=== PATIENT | male | born 1955 | race Caucasian/White ===

== ENCOUNTER 2018-09-28 23:00 | Emergency (ER) | payer OTHER ==
--- NOTE | 2018-09-28 23:09 | EDPHY ---
H & P Stated Complaint: abd pain for one week LUQ Time Seen by Provider: 09/28/18 23:09 HPI/ROS: HPI CHIEF COMPLAINT: Left upper quadrant abdominal pain. HISTORY OF PRESENT ILLNESS: 63-year-old male, otherwise healthy, presents emergency room with 3 weeks of abdominal pain. He states he has had rather constantly for the last 3 weeks. Worse over the last 2 weeks. Dislocated his left upper quadrant. Describes an achy sensation. No chest pain or shortness of breath. He denies any vomiting, he does endorse postprandial fullness. Additionally endorses bloating. Patient reports that he thought he was may be constipated took a lot of constipation medications and relieve this problem however continues to have pain and bloating. States worse after he eats. Pain is located left upper quadrant currently 05/08. He has seen his primary care doctor for this who ordered an outpatient CT but is unsure when this post be done. Additionally he had upright chest x-ray. States that was normal. He endorses night times chills, sweats, fever T-max 101 degrees. He denies any chest pain, shortness of breath, pleuritic pain, productive cough , does endorse urinary discoloration of dark urine. Past Medical History: Degenerative disc disease Past Surgical History: Ruptured appendix, right parotidectomy Social History: Denies drugs alcohol tobacco. Employed here at [employer]. Family History: Noncontributory. ROS REVIEW OF SYSTEMS: 10 Systems were reviewed and negative with the exception of the elements mentioned in the history of present illness. Exam Constitutional triage nursing summary reviewed, vital signs reviewed, awake/ alert. Eyes normal conjunctivae and sclera, EOMI, PERRLA. HENT normal inspection, atraumatic, moist mucus membranes, no epistaxis, neck supple/ no meningismus, no raccoon eyes. Respiratory clear to auscultation bilaterally, normal breath sounds, no respiratory distress, no wheezing. Cardiovascular rate normal, regular rhythm, no murmur, no edema, distal pulses normal. Gastrointestinal soft I cannot elicit any tenderness in left upper quadrant, no rebound, no guarding, normal bowel sounds, no distension, no pulsatile mass. Genitourinary no CVA tenderness. Musculoskeletal no midline vertebral tenderness, full range of motion, no calf swelling, no tenderness of extremities, no meningismus, good pulses, neurovascularly intact. Skin pink, warm, & dry, no rash, skin atraumatic. Neurologic awake, alert and oriented x 3, AAOx3, moves all 4 extremities equally, motor intact, sensory intact, CN II-XII intact, normal cerebellar, normal vision, normal speech. Psychiatric normal mood/affect. Heme/Lymph/Immune no lymphadenopathy. Differential Diagnosis: Differential diagnosis includes but is not limited to and in no particular order: Bowel obstruction, appendicitis, gallbladder disease, diverticulitis, colitis, enteritis, perforated viscus, gastritis, GERD , esophagitis, urinary tract infection, pyelonephritis, kidney stones Medical Decision Making: Plan for this patient IV establishment IV fluid bolus basic lab work, CT scan abdomen pelvis with IV contrast to help delineate left upper quadrant abdominal pain, check EKG, troponin, LFTs, lipase, electrolytes and re-evaluate. Re-evaluation: CT scan abdomen pelvis with IV contrast negative for acute inflammatory process. There is nothing specifically explain left upper quadrant abdominal pain. Upon further review of his blood work he does have a positive D-dimer. Plan will be for CT angiogram of the chest this may be the cause of his left upper quadrant abdominal pain. EKG interpretation by me on record in [employer] system. Impression time of EKG 2333, sinus rhythm rate of 74, incomplete right bundle-branch block present. But no signs of acute ischemia. Patient CT angiogram of the chest with IV contrast rule out left lower lobe PE or left lung PE is negative. No evidence of PE. Nothing to explain left upper quadrant left lower lung pain. Patient had a 2nd troponin that is 0.00. The patient is a repeat EKG time 2:55 a.m., this is sinus rhythm rate of 74 nonspecific intraventricular conduction delay without any signs of acute ischemia I do not appreciate any ST elevation or ST depression. Compare this to his old EKG is very similar in appearance with incomplete bundle branch block appearance. The patient has no chest pain or shortness of breath his main complaint is left upper quadrant abdominal pain. The patient's blood work is reviewed and unremarkable to help explain this pain. The patient had a CT angiogram of the chest rule out PE given the positive D- dimer this is negative. The patient had a CT scan abdomen pelvis with IV contrast to help delineate the left upper quadrant abdominal pain this is negative for acute inflammatory process I did give the patient a GI cocktail which did not help with his left upper quadrant abdominal pain. He did improve with IV narcotic pain medicine. Patient re-evaluated resting comfortably. I do recommend he follows up with GI. Given postprandial fullness, bloating, food intolerance recommend EGD. Possible gastritis versus peptic ulcer disease. Zantac prescribed. Return if worse. Source: Patient - Personal History Current Tetanus/Diphtheria Vaccine: Yes Current Tetanus Diphtheria and Acellular Pertussis (TDAP): Yes - Medical/Surgical History Hx Asthma: No Hx Chronic Respiratory Disease: No Hx Diabetes: No Hx Cardiac Disease: No Hx Renal Disease: No Hx Cirrhosis: No Hx Alcoholism: No Hx HIV/AIDS: No Hx Splenectomy or Spleen Trauma: No Other PMH: appy, gland removed - Social History Smoking Status: Never smoked Constitutional: Initial Vital Signs Temperature (C) 36.6 C 09/28/18 23:03 Heart Rate 73 09/28/18 23:03 Respiratory Rate 16 09/28/18 23:03 Blood Pressure 140/88 H 09/28/18 23:03 O2 Sat (%) 98 09/28/18 23:03 O2 Delivery Mode Room Air Allergies/Adverse Reactions: No Known Allergies Allergy (Unverified 09/28/18 23:06) Home Medications: Medication Instructions Recorded Hydrocodone/APAP 5/325 [[place] 1 - 2 tab PO Q4H PRN #10 tab 09/29/18 5/325 (*)] Ranitidine HCl [Zantac] 150 mg PO DAILY #14 tablet 09/29/18 Medical Decision Making - Data Points Laboratory Results: Laboratory Results 09/28/18 23:20 09/28/18 23:20 Medications Given: Discontinued Medications Al Hydroxide/Mg Hydroxide (Maalox Susp) 30 ml PO ONCE ONE Stop: 09/29/18 01:51 Last Admin: 09/29/18 02:05 Dose: 30 ml Hydromorphone HCl (Dilaudid) 0.5 mg IVP EDNOW ONE Stop: 09/29/18 01:23 Last Admin: 09/29/18 01:23 Dose: 0.5 mg Hydromorphone HCl (Dilaudid) 0.5 mg IVP EDNOW ONE Stop: 09/29/18 02:57 Last Admin: 09/29/18 02:58 Dose: 0.5 mg Hyoscyamine Sulfate (Levsin, Hyomax-Sl) 0.25 mg PO ONCE ONE Stop: 09/29/18 01:51 Last Admin: 09/29/18 02:06 Dose: 0.25 mg Sodium Chloride (Ns) 1,000 mls @ 0 mls/hr IV EDNOW ONE; Wide Open PRN Reason: Protocol Stop: 09/28/18 23:19 Last Admin: 09/28/18 23:36 Dose: 1,000 mls Sodium Chloride (Ns) 1,000 mls @ 0 mls/hr IV ONCE ONE PRN Reason: Wide Open Stop: 09/29/18 01:16 Last Admin: 09/29/18 01:18 Dose: 1,000 mls Lidocaine (Lidocaine 2% Viscous) 15 ml PO ONCE ONE Stop: 09/29/18 01:51 Last Admin: 09/29/18 02:05 Dose: 15 ml Point of Care Test Results: Chemistry 09/29/18 09/28/18 02:57 23:31 POC Troponin I 0.00 ng/mL ng/mL 0.00 ng/mL ng/mL (0.00-0.08) (0.00-0.08) Departure - Departure Disposition: Home, Routine, Self-Care Clinical Impression: Abdominal pain Qualifiers: Abdominal location: left upper quadrant Qualified Code(s): R10.12 - Left upper quadrant pain Condition: Good Instructions: Acute Abdominal Pain (ED) Additional Instructions: 1. I recommend you follow up with Gastroenterology 2. Return to the emergency room if you have worsening pain questions or concerns. 3. Zantac as prescribed. Referrals: Roderick Menchaca DO [Primary Care Provider] - As per Instructions Jorge Hector MD [Medical Doctor] - As per Instructions Prescriptions: Hydrocodone/APAP 5/325 [[place] 5/325 (*)] 1 - 2 tab PO Q4H PRN #10 tab PRN Reason: Pain, Moderate Ranitidine HCl [Zantac] 150 mg PO DAILY #14 tablet
[2018-09-28] MEDS ORDERED: NS 1,000 ML IV ONE (23:18)
[2018-09-28 23:33] LABS: PLATELET COUNT 510 10^3/uL (150-400)
[2018-09-28 23:41] LABS: INR 1.06 (0.83-1.16)
[2018-09-28] MEDS ORDERED: IOPAMIDOL (ISOVUE-300) 100 ML BTL ONE (23:59)
[2018-09-29] MEDS ORDERED: NS 1,000 ML IV ONE (01:15)
[2018-09-29] MEDS ORDERED: HYDROmorphONE/DILAUDID 1 MG/ML INJ IVP ONE (01:22)
[2018-09-29] MEDS ORDERED: HYDROmorphONE/DILAUDID 1 MG/ML INJ ONE (01:22)
[2018-09-29] MEDS ORDERED: IOPAMIDOL (ISOVUE 370) 100 ML BTL IV ONE (01:28)
[2018-09-29] MEDS ORDERED: MAG HYDROX/AL HYDROX/SIMETH 30 ML UDCUP PO ONE (01:50)
[2018-09-29] MEDS ORDERED: HYOSCYAMINE SULFATE 0.125 MG TAB PO ONE (01:50)
[2018-09-29] MEDS ORDERED: LIDOCAINE 2% VISCOUS 15 ML UDCUP PO ONE (01:50)
[2018-09-29] MEDS ORDERED: HYDROmorphONE/DILAUDID 2 MG/ML INJ IVP ONE (02:56)
[2018-09-29 04:32] VITALS: BP 125/84
--- NOTE | 2018-09-29 06:06 | CPEKG ---
Test Reason : OPEN Blood Pressure : / mmHG Vent. Rate : 074 BPM Atrial Rate : 074 BPM P-R Int : 204 ms QRS Dur : 119 ms QT Int : 405 ms P-R-T Axes : 060 -02 033 degrees QTc Int : 450 ms Sinus rhythm Incomplete right bundle branch block Confirmed by Bhupendra Ellis ([id number]) on 09/29/2018 6:05:33 AM Referred By: Confirmed By:Bhupendra Ellis
--- NOTE | 2018-10-04 05:48 | CPEKG ---
Test Reason : OPEN Blood Pressure : / mmHG Vent. Rate : 074 BPM Atrial Rate : 074 BPM P-R Int : 199 ms QRS Dur : 117 ms QT Int : 395 ms P-R-T Axes : 041 -25 024 degrees QTc Int : 439 ms Sinus rhythm Nonspecific intraventricular conduction delay Confirmed by Bhupendra Ellis ([id number]) on 10/04/2018 5:47:35 AM Referred By: Confirmed By:Bhupendra Ellis
== END 2018-09-29 04:31 | disposition home or self-care (01) ==
DX: R10.12 Left upper quadrant pain (principal); E86.9 Volume depletion, unspecified
CPT/HCPCS: 84484-PO; 96374; J1170; Q9967

== ENCOUNTER 2018-10-27 10:43 | Day surgery (SDC) | payer OTHER ==
[2018-10-27] MEDS ORDERED: ceFAZolin 2 GM/DEXTROSE 100 ML IV ONE (11:01)
[2018-10-27] MEDS ORDERED: LIDOCAINE 1% 2 ML INJ ID PRN (11:03)
[2018-10-27] MEDS ORDERED: LR 1,000 ML IV ONE (11:03)
--- NOTE | 2018-10-27 11:15 | PDHPUP ---
History & Physical Update H&P update statement: This history and physical update is based on an assessment of the patient which was completed after admission or registration (within 24 hours), but prior to the surgery/procedure. H&P update: H&P reviewed & patient examined, no change in patient's condition since H&P completed
[2018-10-27] MEDS ORDERED: BUPIVACAINE 0.5% 30 ML SDV ONE (11:20)
[2018-10-27] MEDS ORDERED: MIDAZOLAM 2 MG/2 ML VIAL ONE ×2 (11:42→11:53)
--- NOTE | 2018-10-27 11:46 | PDANEPAE ---
ANE History of Present Illness Right supraclavicular wide excision skin lesion ANE Past Medical History - Cardiovascular History Hx Hypertension: No Hx Arrhythmias: No Hx Chest Pain: No Hx Coronary Artery / Peripheral Vascular Disease: No Hx CHF / Valvular Disease: No Hx Palpitations: No - Pulmonary History Hx COPD: No Hx Asthma/Reactive Airway Disease: No Hx Recent Upper Respiratory Infection: No Hx Oxygen in Use at Home: No Hx Sleep Apnea: No Sleep Apnea Screening Result - Last Documented: Negative - Neurologic History Hx Cerebrovascular Accident: No Hx Seizures: No Hx Dementia: No - Endocrine History Hx Diabetes: No Hypothyroid: No Hyperthyroid: No Obesity: no - Renal History Hx Renal Disorders: No - Liver History Hx Hepatic Disorders: No - Neurological & Psychiatric Hx Hx Neurological and Psychiatric Disorders: No - Cancer History Hx Cancer: Yes Cancer History Comment: right shoulder melanoma - Congenital Disorder History Hx Congenital Disorders: No - GI History Hx Gastrointestinal Disorders: Yes Gastrointestinal History Comment: had some abdominal pain prior to dx of lyme disease but has resolved since abx tx - Other Health History Other Health History: recently dx w/lyme disease - finished Abx 10/18/18 - Chronic Pain History Chronic Pain: No - Surgical History Prior Surgeries: appendectomy. mastoidectomy ANE Review of Systems Review of systems is: negative Review of Systems: - Exercise capacity METS (RN): 6 METS ANE Patient History - Allergies Allergies/Adverse Reactions: No Known Allergies Allergy (Verified 10/27/18 11:12) - Home Medications Home Medications: Vitamin B Complex 10/21/18 [Last Taken 10/20/18] Vitamin D3 10/21/18 [Last Taken 10/20/18] - Anes Hx Anes Hx: no prior problems - Smoking Hx Smoking Status: Never smoked - Alcohol Use Alcohol Use: None - Family Anes Hx Family Anes Hx: none Family Hx Anesthesia Complications: none ANE Labs/Vital Signs - Vital Signs Height: 187.96 cm Weight: 92.079 kg ANE Physical Exam - Airway Neck exam: FROM Mallampati Score: Class 1 Mouth exam: normal dental/mouth exam, poor dentition - Pulmonary Pulmonary: no respiratory distress, no rales or rhonchi - Cardiovascular Cardiovascular: regular rate and rhythym, no murmur, rub, or gallop - ASA Status ASA Status: I ANE Anesthesia Plan Anesthesia Plan: GA w LMA
[2018-10-27] MEDS ORDERED: fentaNYL 100 MCG/2 ML INJ ONE ×2 (11:52→11:57)
[2018-10-27] MEDS ORDERED: PROPOFOL 200 MG/20 ML VIAL ONE ×2 (11:52→12:14)
[2018-10-27] MEDS ORDERED: PROPOFOL/EMULSION 500 MG/50 ML BOTTLE IV ONE (11:52)
[2018-10-27] MEDS ORDERED: ONDANSETRON 4 MG/2 ML VIAL IVP PRN (12:35)
[2018-10-27] MEDS ORDERED: fentaNYL 100 MCG/2 ML INJ IVP PRN (12:35)
[2018-10-27] MEDS ORDERED: HYDROCODONE/APAP 5/325 TAB PO PRN (12:35)
[2018-10-27] MEDS ORDERED: oxyCODONE IR 5 MG TAB PO PRN (12:35)
[2018-10-27] MEDS ORDERED: NALOXONE HCL 0.4 MG/ML INJ IVP PRN (12:35)
[2018-10-27] MEDS ORDERED: ACETAMINOPHEN 500 MG TAB PO PRN (12:35)
[2018-10-27] MEDS ORDERED: MEPERIDINE 25 MG/0.5 ML AMP IVP PRN (12:35)
[2018-10-27] MEDS ORDERED: MIDAZOLAM 2 MG/2 ML VIAL IVP ONE (12:36)
[2018-10-27] MEDS ORDERED: DEXAMETHASONE 4 MG/ML VIAL ONE (12:38)
[2018-10-27] MEDS ORDERED: ONDANSETRON 4 MG/2 ML VIAL ONE (12:38)
[2018-10-27] MEDS ORDERED: KETOROLAC 30 MG/1 ML SDV ONE (12:38)
--- NOTE | 2018-10-27 12:45 | POSTOPPROG ---
Post Op Note Date of Operation: 10/27/18 Surgeon: Soila Canchola Anesthesiologist: Alexandre Anesthesia: GET(General Endotracheal) Pre-op Diagnosis: Malignant Melanoma Post-op Diagnosis: same Indication: malignant melanoma Procedure: wide local excision for malignant melanoma Findings: Removal of melanoma with wide local excision. Specimen to pathology Inf/Abcess present in the surg proc area at time of surgery?: No EBL: Minimal Specimen(s): Malignant melanoma, short superior, long lateral
[2018-10-27 13:36] VITALS: BP 134/87
--- NOTE | 2018-10-27 15:53 | POSTANESTH ---
Post Anesthetic Evaluation Cardiovascular Status: Normal, Stable Respiratory Status: Normal, Stable Level of Consciousness/Mental Status: Can Participate in Eval Pain Control: Adequate, Prn Tx Ordered Nausea/Vomiting Control: Adequate, Prn Tx Ordered Complications Possibly Related to Anesthesia: None Noted
--- NOTE | 2018-11-02 08:57 | GOP ---
DATE OF OPERATION: 10/27/2018 SURGEON: Soila Canchola MD ANESTHESIA: General. ANESTHESIOLOGIST: Dr. Cece Schroeder. PREOPERATIVE DIAGNOSIS: Malignant melanoma, right shoulder. POSTOPERATIVE DIAGNOSIS: Malignant melanoma, right shoulder. PROCEDURE PERFORMED: Wide local excision, malignant melanoma, right shoulder. FINDINGS: 1 cm margins marked short superior, long lateral. ESTIMATED BLOOD LOSS: Minimal. INDICATIONS: The patient is a 63-year-old who had a biopsy of a lesion above his right clavicle. This was found to be malignant melanoma, Breslow depth was 0.6 and sentinel lymph node was not indicated. DESCRIPTION OF PROCEDURE: The patient was brought into the operating room, placed supine on the table and anesthesia was administered. His neck and chest were prepped and draped in the usual sterile fashion. I had preoperatively marked 1 cm margins around the entire melanoma, created an ellipse so that the skin would close nicely. I dissected down to the level beyond the adipose tissue. Hemostasis was achieved. The specimen was marked short superior, long lateral. Hemostasis was achieved. I closed the deep layer with 3-0 Vicryl. I closed the skin with 3-0 Vicryl followed by 4-0 Monocryl. A sterile dressing was applied. He was awakened in the operating room, extubated, transferred to PACU in stable condition. /[id number]/MODL MTDD
== END 2018-10-27 14:10 | disposition home or self-care (01) ==
LOC: FSGY 10:43
PROVIDERS: ATTEND Surgery
PROC: 0JBF0ZX Excision of Left Upper Arm Subcutaneous Tissue and Fascia, Open Approach, Diagnostic (ICD-10-PCS; principal; 2018-10-27 12:00)
DX: C43.62 Malignant melanoma of left upper limb, including shoulder (principal)
CPT/HCPCS: J0690; J1100; J1885; J2250; J2405; J2704; J3010